=== PATIENT | male | born 1995 | race African-American/Black ===

== ENCOUNTER 2018-08-09 15:59 | Emergency (ER) | payer OTHER ==
[~2018-08-09] VITALS: Ht 175.3 cm; Wt 68.2 kg
[2018-08-09] MEDS ORDERED: LIDOCAINE 2% VISCOUS 15 ML SOLUTION UDCUP PO ONE (16:45)
[2018-08-09] MEDS ORDERED: IBUPROFEN 800 MG TABLET PO ONE (16:45)
[2018-08-09 17:35] VITALS: BP 124/78
== END 2018-08-09 17:45 | disposition home or self-care (01) ==
LOC: EMS 16:01
DX: K12.0 Recurrent oral aphthae (principal)